=== PATIENT | female | born 1930 | race Caucasian/White ===

== ENCOUNTER 2017-02-25 23:50 | Emergency (ER) | payer MEDICARE, MEDICAID ==
[~2017-02-25 23:50] MED LIST: Azithromycin 250 MG Tab PO ONE
[2017-02-26 00:50] VITALS: BP 149/65
[2017-02-26 01:02] LABS: CHLORIDE,CL 97 mEq/L (98-106); SODIUM,NA 133 mEq/L (136-145)
== END 2017-02-26 01:45 | disposition home or self-care (01) ==
LOC: CC.ED 23:50
DX: J18.9 Pneumonia, unspecified organism (principal); M25.512 Pain in left shoulder; I48.91 Unspecified atrial fibrillation; I10 Essential (primary) hypertension; E03.9 Hypothyroidism, unspecified; Z98.890 Other specified postprocedural states
CPT/HCPCS: 36415; 80048; 81001; 82550; 83615; 84484; 85025; 86140; 96372; 99283; A9270; 71020; 73030-LT

== ENCOUNTER 2017-10-17 20:45 | Emergency (ER) | payer MEDICARE, MEDICAID, SELFPAY ==
[2017-10-17 21:20] LABS: CHLORIDE,CL 99 mEq/L (98-106); SODIUM,NA 136 mEq/L (136-145)
--- NOTE | 2017-10-17 21:22 | EDM.PDOC ---
ED HPI GENERAL MEDICAL PROBLEM - General Chief Complaint: Headache Stated Complaint: pain to L)side of head Time Seen by Provider: 10/17/17 21:21 Source of Information: Reports: Patient - History of Present Illness INITIAL COMMENTS - FREE TEXT/NARRATIVE: Patient is an 87 year old female, with a PMH of hypertension, hyperlipidemia, hypothyroidism, atrial fibrillation, GERD, and osteoarthritis, who presents to the ED with complaint of right and left posterior headache. She reports that the headache started around 1930 and initially started as sharp onset. She does report she is "a little lightheaded." She reports it is now just a dull ache. She denies any chest pain, shortness of breath, nausea, vomiting, diarrhea, abdominal pain, urinary symptoms, difficulty walking, visual changes, or any neurological deficit. She reports that other than the headache she has been feeling well. She is on blood thinners. Denies any injury to her head or neck. Reports that she doesn't get headaches real frequently. She did not take anything at home for the pain prior to ED presentation. NIH 0 at time of assessment. Patient communicating in full complete sentences. Alert and oriented x4. Appears in no acute distress. Onset: Today Onset Date: 10/17/17 Onset Time: 19:30 Duration: Constant Location: Reports: Head Quality: Reports: Ache, Dull Severity: Mild Associated Symptoms: Reports: Headaches. Denies: Confusion, Chest Pain, Cough, cough w sputum, Diaphoresis, Fever/Chills, Loss of Appetite, Malaise, Nausea/ Vomiting, Rash, Seizure, Shortness of Breath, Syncope, Weakness Headache Pain Score (Numeric/FACES): 2 - Related Data Allergies Allergy/AdvReac Type Severity Reaction Status Date / Time tramadol Allergy Stomach Verified 10/17/17 20:55 Upset lisinopril AdvReac Cough Verified 10/17/17 20:55 oxycodone HCl AdvReac Nausea Verified 10/17/17 20:55 [From OxyContin] Home Meds: Home Meds Hydrochlorothiazide 25 mg PO DAILY 10/31/13 [History] Levothyroxine [Synthroid] 100 mcg PO DAILY 10/31/13 [History] Acetaminophen [Tylenol Extra Strength] 1,000 mg PO Q4H PRN 11/09/13 [History] Cholecalciferol (Vitamin D3) [Vitamin D3] 10,000 unit PO DAILY 11/09/13 [History ] Acetaminophen/HYDROcodone [Baggs 325-5 MG] 1 - 2 tab PO Q6H PRN #60 tab [Rx] Cephalexin [Keflex] 500 mg PO TID #20 capsule 11/17/13 [Rx] Apixaban [Eliquis] 2.5 mg PO BID 02/26/17 [History] amLODIPine [Norvasc] 5 mg PO DAILY 02/26/17 [History] Past Medical History Cardiovascular History: Reports: Afib, High Cholesterol, Hypertension Respiratory History: Reports: Bronchitis, Recurrent Gastrointestinal History: Reports: Chronic Constipation, GERD 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 Musculoskeletal History: Reports: Fracture, Osteoarthritis Neurological History: Reports: Vertigo Endocrine/Metabolic History: Reports: Hypothyroidism Hematologic History: Reports: Blood Transfusion(s) - Past Surgical History HEENT Surgical History: Reports: Cataract Surgery Cardiovascular Surgical History: Reports: None Respiratory Surgical History: Reports: None GI Surgical History: Reports: Appendectomy, Colonoscopy, EGD, Hernia, Inguinal, Polypectomy Neurological Surgical History: Reports: None Musculoskeletal Surgical History: Reports: Hip Replacement Social & Family History - Family History Family Medical History: Noncontributory - Tobacco Use Smoking Status *Q: Never Smoker Second Hand Smoke Exposure: No - Alcohol Use Days Per Week of Alcohol Use: 0 - Recreational Drug Use Recreational Drug Use: No ED ROS GENERAL - Review of Systems Review Of Systems: See Below Constitutional: Reports: No Symptoms. Denies: Fever, Chills, Malaise, Weakness , Fatigue HEENT: Reports: Glasses. Denies: Ear Pain, Rhinitis, Sinus Problem, Throat Pain , Vertigo, Vision Change Respiratory: Reports: No Symptoms. Denies: Shortness of Breath, Pleuritic Chest Pain, Cough, Sputum Cardiovascular: Reports: Blood Pressure Problem, Lightheadedness. Denies: Chest Pain, Dyspnea on Exertion, Edema, Syncope Endocrine: Reports: No Symptoms. Denies: Fatigue GI/Abdominal: Reports: No Symptoms. Denies: Abdominal Pain, Anorexia, Diarrhea , Decreased Appetite, Nausea, Vomiting : Reports: No Symptoms. Denies: Dysuria, Frequency, Pain, Urgency Musculoskeletal: Reports: Muscle Stiffness (neck) Skin: Reports: No Symptoms Neurological: Reports: Dizziness, Headache. Denies: Confusion, Numbness, Paresthesia, Pre-Existing Deficit, Seizure, Syncope, Tingling, Tremors, Trouble Speaking, Difficulty Walking, Weakness, Change in Speech, Gait Disturbance Psychiatric: Reports: No Symptoms Hematologic/Lymphatic: Reports: No Symptoms Immunologic: Reports: No Symptoms - Physical Exam Exam: See Below Exam Limited By: No Limitations General Appearance: Alert, WD/WN, No Apparent Distress Eye Exam: Bilateral Eye: EOMI, Normal Fundi, Normal Inspection, PERRL Ears: Normal External Exam, Normal Canal, Hearing Grossly Normal, Normal TMs Nose: Normal Inspection, Normal Mucosa, No Blood Throat/Mouth: Normal Inspection, Normal Lips, Normal Teeth, Normal Gums, Normal Oropharynx, Normal Voice, No Airway Compromise Head Exam: Atraumatic, Normocephalic Neck: Normal Inspection, Supple, Non-Tender, Full Range of Motion Respiratory/Chest: No Respiratory Distress, Lungs Clear, Normal Breath Sounds, No Accessory Muscle Use, Chest Non-Tender Cardiovascular: Normal Peripheral Pulses, No Edema, Irregularly Irregular GI/Abdominal: Normal Bowel Sounds, Soft, Non-Tender, No Organomegaly, No Distention, No Abnormal Bruit, No Mass Neuro Exam (Abbreviated): Alert, Oriented, CN II-XII Intact, Normal Cognition, Normal Gait, Normal Reflexes, No Motor/Sensory Deficits Back Exam: Normal Inspection, Full Range of Motion, NT Extremities: Normal Inspection, Normal Range of Motion, Non-Tender, No Pedal Edema, Normal Capillary Refill Psychiatric: Normal Affect, Normal Mood Skin Exam: Warm, Dry, Intact, Normal Color, No Rash Course - Vital Signs Last Recorded V/S: Last Vital Signs Temp 96.9 F 10/17/17 20:49 Pulse 64 10/17/17 21:35 Resp 18 10/17/17 20:49 BP 169/78 H 10/17/17 22:12 Pulse Ox 97 10/17/17 21:35 - Orders/Labs/Meds Orders: Active Orders 24 hr Category Date Time Status Head wo Cont [CT] Stat Exams 10/17/17 21:04 Taken cloNIDine [Catapres] Med 10/17/17 21:45 Active 0.1 mg PO STAT Medication Orders Clonidine HCl (Catapres) 0.1 mg PO STAT ALCIDES Last Admin: 10/17/17 21:44 Dose: 0.1 mg Labs: Laboratory Tests 10/17/17 10/17/17 10/17/17 Range/Units 21:10 21:10 21:10 WBC 5.8 (5.0-10.0) 10^3/uL RBC 4.35 (4.00-5.50) 10^6/uL Hgb 13.8 (12.0-16.0) g/dL Hct 41.5 (37.0-47.0) % MCV 95.4 H (82.0-94.0) fL MCH 31.7 (27.0-32.0) pg MCHC 33.3 (33.0-38.0) g/dL RDW Coeff of Skinny 12.8 (11.0-15.0) % Plt Count 268 (150-400) 10^3/uL Neut % (Auto) 68.0 (35-85) % Lymph % (Auto) 19.9 (10-55) % [place]affee % (Auto) 10.2 (0-16) % Eos % (Auto) 1.4 (0-5) % Baso % (Auto) 0.5 (0-3) % Neut # (Auto) 3.94 (1.80-7.00) 10^3/uL Lymph # (Auto) 1.15 (1.00-4.80) 10^3/uL [place]fee # (Auto) 0.59 (0.00-0.80) 10^3/uL Eos # (Auto) 0.08 (0.00-0.45) 10^3/uL Baso # (Auto) 0.03 10^3/uL ESR (0-20) mm/hr PT 10.7 (9.7-12.3) SEC INR 0.99 (0.92-1.18) Sodium 136 (136-145) mEq/L Potassium 3.4 L (3.5-5.0) mEq/L Chloride 99 (98-106) mEq/L Carbon Dioxide 31 (21-32) mmol/L BUN 14 (7-18) mg/dL Creatinine 0.8 (0.6-1.0) mg/dL Est Cr Clr Drug Dosing 40.66 mL/min Estimated GFR (MDRD) > 60 (>=60) mL/min Glucose 103 H (75-99) mg/dL Calcium 9.3 (8.4-10.1) mg/dL C-Reactive Protein (0.2-0.8) mg/dL 10/17/17 10/17/17 Range/Units 21:10 21:10 WBC (5.0-10.0) 10^3/uL RBC (4.00-5.50) 10^6/uL Hgb (12.0-16.0) g/dL Hct (37.0-47.0) % MCV (82.0-94.0) fL MCH (27.0-32.0) pg MCHC (33.0-38.0) g/dL RDW Coeff of Skinny (11.0-15.0) % Plt Count (150-400) 10^3/uL Neut % (Auto) (35-85) % Lymph % (Auto) (10-55) % Chaffee % (Auto) (0-16) % Eos % (Auto) (0-5) % Baso % (Auto) (0-3) % Neut # (Auto) (1.80-7.00) 10^3/uL Lymph # (Auto) (1.00-4.80) 10^3/uL [place]fee # (Auto) (0.00-0.80) 10^3/uL Eos # (Auto) (0.00-0.45) 10^3/uL Baso # (Auto) 10^3/uL ESR 29 H (0-20) mm/hr PT (9.7-12.3) SEC INR (0.92-1.18) Sodium (136-145) mEq/L Potassium (3.5-5.0) mEq/L Chloride (98-106) mEq/L Carbon Dioxide (21-32) mmol/L BUN (7-18) mg/dL Creatinine (0.6-1.0) mg/dL Est Cr Clr Drug Dosing mL/min Estimated GFR (MDRD) (>=60) mL/min Glucose (75-99) mg/dL Calcium (8.4-10.1) mg/dL C-Reactive Protein 0.7 (0.2-0.8) mg/dL Meds: Medications Generic Name Dose Route Start Last Admin Trade Name Freq PRN Reason Stop Dose Admin Clonidine HCl 0.1 mg 10/17/17 21:45 10/17/17 21:44 Catapres PO 0.1 mg STAT ALCIDES Administration Discontinued Medications Generic Name Dose Route Start Last Admin Trade Name Jimmy PRN Reason Stop Dose Admin Acetaminophen 650 mg 10/17/17 21:43 10/17/17 21:45 Tylenol PO 10/17/17 21:44 650 mg NOW ONE Administration - Radiology Interpretation Free Text/Narrative:: CT negative for evidence of acute intracranial hemorrhage or large vascular distribution infarct. CT Results Date: 10/17/17 CT Results Time: 21:45 - Re-Assessments/Exams Free Text/Narrative Re-Assessment/Exam: Labs all stable. Discussed with patient and spouse. Patient given clonidine for elevated BP and Tylenol for headache. CT of head negative for any acute findings. Results discussed with patient and spouse. BP decreased with clonidine. Departure - Departure Time of Disposition: 21:59 Disposition: Home, Self-Care 01 Clinical Impression: Tension-type headache Hypertension Qualifiers: Hypertension type: essential hypertension Qualified Code(s): I10 - Essential ( primary) hypertension - Discharge Information Instructions: Tension Headache, [id number], Managing Your High Blood Pressure , Hypertension Referrals: Miguelangel Camilo MD [Primary Care Provider] - Forms: ED Department Discharge Additional Instructions: 650 mg Tylenol Q 4-6 hours as needed for headache Push fluids Apply heat to neck/posterior head for comfort Recommend massaging affected area Return to ED for any worsening of condition or any other emergent needs Follow up with PCP - My Orders Last 24 Hours: My Active Orders 10/17/17 21:04 Head wo Cont [CT] Stat 10/17/17 21:45 cloNIDine [Catapres] 0.1 mg PO STAT - Assessment/Plan Last 24 Hours: My Active Orders 10/17/17 21:04 Head wo Cont [CT] Stat 10/17/17 21:45 cloNIDine [Catapres] 0.1 mg PO STAT
[2017-10-17] MEDS ORDERED: Acetaminophen 325 MG Tab PO ONE (21:43)
[2017-10-17] MEDS ORDERED: cloNIDine 0.1 MG Tab PO SCH (21:45)
[2017-10-17 22:21] VITALS: BP 147/72
== END 2017-10-17 22:25 | disposition home or self-care (01) ==
LOC: CC.ED 20:45
DX: G44.209 Tension-type headache, unspecified, not intractable (principal); I10 Essential (primary) hypertension; E78.00 Pure hypercholesterolemia, unspecified; E03.9 Hypothyroidism, unspecified; K21.9 Gastro-esophageal reflux disease without esophagitis; M19.90 Unspecified osteoarthritis, unspecified site; Z88.5 Allergy status to narcotic agent; Z88.8 Allergy status to other drugs, medicaments and biological substances; Z79.899 Other long term (current) drug therapy; Z79.01 Long term (current) use of anticoagulants; I48.91 Unspecified atrial fibrillation
CPT/HCPCS: 36415; 70450; 80048; 85025; 85610; 85651; 86140; 99284; A9270

== ENCOUNTER 2018-11-05 16:42 | Emergency (ER) | payer MEDICARE, MEDICAID ==
[2018-11-05] MEDS ORDERED: Acetaminophen/HYDROcodone 325-5 MG Tab PO ONE (16:43)
[2018-11-05] MEDS ORDERED: fentaNYL 100 MCG/2 ML SDV IM ONE (16:49)
[2018-11-05 17:04] VITALS: BP 166/90
--- NOTE | 2018-11-05 17:19 | EDM.PDOC ---
ED HPI GENERAL MEDICAL PROBLEM - General Chief Complaint: Upper Extremity Injury/Pain Stated Complaint: FELL/LT ARM Time Seen by Provider: 11/05/18 16:59 Source of Information: Reports: Patient History Limitations: Reports: No Limitations - History of Present Illness INITIAL COMMENTS - FREE TEXT/NARRATIVE: Patient presents with left wrist pain. Was out on her deck shaking out a rug. Was wearing slippers and caught her foot as she was entering back to her house. She fell forward, arm outstretched to catch her fall. Has mild discomfort to left knee. No head trauma. No loss of consciousness. Patient states did land on her right side. assisted her to get up from the fall. GCS 15 Onset: Today, Sudden Duration: Minutes:, Constant Location: Reports: Upper Extremity, Left Quality: Reports: Throbbing Severity: Severe Improves with: Reports: None Worsens with: Reports: Movement Context: Reports: Trauma Associated Symptoms: Denies: Confusion, Chest Pain, Headaches, Loss of Appetite , Nausea/Vomiting, Shortness of Breath, Syncope Left Arm Pain Score (Numeric/FACES): 10 - Related Data Allergies Allergy/AdvReac Type Severity Reaction Status Date / Time tramadol Allergy Stomach Verified 10/17/17 20:55 Upset lisinopril AdvReac Cough Verified 10/17/17 20:55 oxycodone HCl AdvReac Nausea Verified 10/17/17 20:55 [From OxyContin] Home Meds: Home Meds Levothyroxine [Synthroid] 80 mcg PO DAILY 10/31/13 [History] hydroCHLOROthiazide [Hydrochlorothiazide] 25 mg PO DAILY 10/31/13 [History] Acetaminophen [Tylenol Extra Strength] 1,000 mg PO Q4H PRN 11/09/13 [History] Cholecalciferol (Vitamin D3) [Vitamin D3] 5,000 unit PO DAILY 11/09/13 [History] Apixaban [Eliquis] 2.5 mg PO BID 02/26/17 [History] amLODIPine [Norvasc] 5 mg PO DAILY 02/26/17 [History] Past Medical History Cardiovascular History: Reports: Afib, High Cholesterol, Hypertension Respiratory History: Reports: Bronchitis, Recurrent Gastrointestinal History: Reports: Chronic Constipation, GERD 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 Musculoskeletal History: Reports: Fracture, Osteoarthritis Neurological History: Reports: Vertigo Endocrine/Metabolic History: Reports: Hypothyroidism Hematologic History: Reports: Blood Transfusion(s) Dermatologic History: Reports: Other (See Below) Other Dermatologic History: rosacea - Past Surgical History HEENT Surgical History: Reports: Cataract Surgery Cardiovascular Surgical History: Reports: None Respiratory Surgical History: Reports: None GI Surgical History: Reports: Appendectomy, Colonoscopy, EGD, Hernia, Inguinal, Polypectomy Neurological Surgical History: Reports: None Musculoskeletal Surgical History: Reports: Hip Replacement Social & Family History - Family History Family Medical History: Noncontributory - Tobacco Use Smoking Status *Q: Never Smoker Second Hand Smoke Exposure: No - Caffeine Use Caffeine Use: Reports: None - Recreational Drug Use Recreational Drug Use: No Review of Systems - Review of Systems Review Of Systems: See Below Constitutional: Denies: Weakness Eyes: Reports: No Symptoms Ears: Reports: No Symptoms Nose: Reports: No Symptoms Mouth/Throat: Reports: No Symptoms Respiratory: Reports: No Symptoms Cardiovascular: Reports: No Symptoms GI/Abdominal: Reports: No Symptoms Genitourinary: Reports: No Symptoms Musculoskeletal: Reports: Arm Pain, Joint Pain (knee pain) Skin: Reports: Bruising Neurological: Denies: Confusion, Dizziness, Headache, Syncope, Weakness ED EXAM, GENERAL - Physical Exam Exam: See Below Free Text/Narrative:: Primary Survey GCS 15. No head trauma. Alert and oriented Lungs are clear, good air exchange Cardiac reg [id number] No pelvic pain with palpation Exam Limited By: No Limitations General Appearance: Alert, WD/WN, Mild Distress Eye Exam: Bilateral Eye: EOMI Ears: Normal External Exam, Normal TMs Nose: Normal Inspection, Normal Mucosa, No Blood Throat/Mouth: Normal Inspection, Normal Oropharynx Head: Atraumatic, Normocephalic Neck: Normal Inspection, Supple, Non-Tender Respiratory/Chest: No Respiratory Distress, Lungs Clear, Normal Breath Sounds Cardiovascular: Irregularly Irregular GI/Abdominal: Normal Bowel Sounds, No Distention Extremities: Arm Pain (left wrist has an obvious deformity), Limited Range of Motion (left wrist), Other (small bruise and abrasion noted to left knee) Neurological: Alert, Oriented Course - Vital Signs Last Recorded V/S: Last Vital Signs Temp 97.7 F 11/05/18 17:01 Pulse 83 11/05/18 17:01 Resp 18 11/05/18 17:01 BP 166/90 H 11/05/18 17:01 Pulse Ox 98 11/05/18 17:01 - Orders/Labs/Meds Orders: Active Orders 24 hr Category Date Time Status Wrist 2V Lt [CR] Stat Exams 11/05/18 16:48 Taken Meds: Medications Discontinued Medications Generic Name Dose Route Start Last Admin Trade Name Jimmy PRN Reason Stop Dose Admin Hydrocodone Bitart/Acetaminophen 2 packet 11/05/18 17:25 11/05/18 17:29 Take Home: Acetaminophen/Hydrocod, 2 Tab Pack PO 11/05/18 17:26 2 packet ONETIME ONE Administration Fentanyl 25 mcg 11/05/18 16:49 11/05/18 16:54 Sublimaze IM 11/05/18 16:50 25 mcg ONETIME ONE Administration - Re-Assessments/Exams Free Text/Narrative Re-Assessment/Exam: 11/05/18 1700 GCS remains 15. Left wrist xrays reviewed. Does have fractures noted of distal radius and ulna. Mildly displaced. 11/05/18 1715- One step wrist splint applied to left wrist and arm placed in sling. Elevated on pillow. Resumed ice pack. Fentanyl was given earlier and patient states has helped to relieve the pain somewhat. Patient aware that we will contact ortho tomorrow for review of the xrays and if surgical intervention warranted. Departure - Departure Time of Disposition: 17:18 Disposition: Home, Self-Care 01 Condition: Fair Clinical Impression: Closed fracture of radius and ulna Qualifiers: Encounter type: initial encounter Laterality: left Qualified Code(s): S52.92XA - Unspecified fracture of left forearm, initial encounter for closed fracture - Discharge Information *PRESCRIPTION DRUG MONITORING PROGRAM REVIEWED*: No *COPY OF PRESCRIPTION DRUG MONITORING REPORT IN PATIENT LENORE: No Instructions: Forearm Fracture, [id number] Referrals: Miguelangel Camilo MD [Primary Care Provider] - Forms: ED Department Discharge Additional Instructions: 1. Elevate arm frequently tonight on pillow 2. Ice every 2 hours tonight and tomorrow 3. Keep splint on, wear sling 4. Ehrenberg 1-2 tabs for pain every 6 hours as needed for pain 5. We will call you tomorrow with orthopedic recommendations - My Orders Last 24 Hours: My Active Orders 11/05/18 16:48 Wrist 2V Lt [CR] Stat - Assessment/Plan Last 24 Hours: My Active Orders 11/05/18 16:48 Wrist 2V Lt [CR] Stat
[2018-11-05] MEDS ORDERED: Take Home: Acetaminophen/HYDROcodone 325-5 MG, 2 Tab Pack PO ONE (17:25)
== END 2018-11-05 17:47 | disposition home or self-care (01) ==
LOC: CC.ED 16:42
DX: S52.502A Unspecified fracture of the lower end of left radius, initial encounter for closed fracture (principal); S52.602A Unspecified fracture of lower end of left ulna, initial encounter for closed fracture; I48.91 Unspecified atrial fibrillation; E78.00 Pure hypercholesterolemia, unspecified; I10 Essential (primary) hypertension; E03.9 Hypothyroidism, unspecified; Z79.899 Other long term (current) drug therapy; Z88.5 Allergy status to narcotic agent; Z88.8 Allergy status to other drugs, medicaments and biological substances; W18.39XA Other fall on same level, initial encounter
CPT/HCPCS: 73100-LT; 96372; 99283; A9270-GY; J3010

== ENCOUNTER → 2020-05-26 | Day surgery (SDC) | payer MEDICARE, MEDICAID ==
[~2020-05-26] MED LIST changes: -Azithromycin 250 MG Tab PO ONE; +Ketamine 200 MG/20 ML MDV IV ONE; +Propofol 200 MG/20 ML SDV IV ONE; +fentaNYL 100 MCG/2 ML SDV IV ONE
[2020-05-26] MEDS: Lactated Ringers 1,000 ML IV SCH (08:53)
[2020-05-26 10:45] VITALS: BP 143/55; PULSE 49
--- NOTE | 2020-05-29 09:47 | OR ---
DATE OF OPERATION: 05/26/2020 PREOPERATIVE DIAGNOSIS: 1. PERSISTENT EPIGASTRIC PAIN. 2. FAMILY HISTORY OF COLON CANCER. POSTOPERATIVE DIAGNOSIS: 1. PERSISTENT EPIGASTRIC PAIN. 2. FAMILY HISTORY OF COLON CANCER. SURGEON: Miguelangel Camilo MD PROCEDURE: 1. DIAGNOSTIC ESOPHAGOGASTRODUODENOSCOPY WITH BIOPSIES X2, SANJAY. 2. FULL-LENGTH COLONOSCOPY WITH FORCEPS POLYPECTOMY X1. ANESTHESIA: MAC. COMPLICATIONS: None. SPECIMEN: 1. Antral biopsy x2. 2. Antral SANJAY. 3. Cecal polyp approximately 0.5 cm. FINDINGS: 1. Full-length diagnostic EGD. 2. Minimal antral gastritis. 3. Full-length colonoscopy. 4. Mild sigmoid diverticulosis. 5. Sessile polyp, cecum. RECOMMENDATIONS: Medical followup for patient's gastritis. The patient could consider followup colonoscopy again in 5 years should she desire, but at her age, appropriate if she declines. INDICATIONS: Mrs. Melgar has been having some ongoing and persistent epigastric and right upper quadrant pain. She was sent for diagnostic EGD in that regard. She has a family history of colon cancer and was told apparently to have a followup colonoscopy by her last provider. She was sent for both. DESCRIPTION OF PROCEDURE: The patient was prepped and draped and placed in the left lateral decubitus position. A lubricated Olympus gastroscope was inserted and then advanced to the cricopharyngeus area and easily intubated in the esophagus. The esophageal lining was benign in its entire course. The Z-line was crisp at 40 cm. There was no spontaneous reflux visualized. No distal esophagitis, stricturing, ulceration, or Ch's changes. Scope was advanced into the stomach, through the pylorus, and into the second portion of the duodenum. This and duodenal bulb were completely benign. The scope was brought back into the stomach and retroflexed. The upper fundus and cardia were completely unremarkable. Upon straightening, the rest of the fundus was benign. There were a few very mild areas of gastritis in the antrum. These did appear active and acute. We elected to biopsy 2 of them along with getting a CLOtest. Air was then suctioned from the stomach and the scope was removed without complication. A lubricated Olympus colonoscope was then inserted and ultimately and safely advanced to the cecum. The patient was a bit tortuous. We were able to directly visualize the ileocecal valve and appendiceal orifice. The bowel prep was fine. Upon withdrawal, in the immediate kimberli-cecal area in the back edge of the cecal pouch, the patient had a small flat sessile polyp approximately 4 to 5 mm, removed it with two forceps biopsies in its entirety. The rest of the ascending and transverse colons were benign. The patient did have scattered diverticula, albeit very minimal and mild throughout the colon. No inflammatory changes were seen. The rest of the colon showed no signs of polyps, mass, ulceration, or bleeding sites. No vascular abnormalities or signs of colitis. The rectal vault was benign. Retroflexion of the scope in the rectum showed no anal lesions. Air was suctioned. Scope was removed without complication. KALYANI/TOLU /[id number]
== END ==
LOC: CC.SDS 08:37
PROVIDERS: ATTEND Family Medicine
DX: Z12.11 Encounter for screening for malignant neoplasm of colon (principal); D12.0 Benign neoplasm of cecum; K57.30 Diverticulosis of large intestine without perforation or abscess without bleeding; K29.70 Gastritis, unspecified, without bleeding; Q43.8 Other specified congenital malformations of intestine; K21.9 Gastro-esophageal reflux disease without esophagitis; I10 Essential (primary) hypertension; E78.00 Pure hypercholesterolemia, unspecified; E03.9 Hypothyroidism, unspecified; I48.0 Paroxysmal atrial fibrillation; Z86.010 Personal history of colon polyps; Z88.5 Allergy status to narcotic agent; Z88.6 Allergy status to analgesic agent; Z88.8 Allergy status to other drugs, medicaments and biological substances; Z79.899 Other long term (current) drug therapy; Z79.01 Long term (current) use of anticoagulants; Z80.0 Family history of malignant neoplasm of digestive organs
CPT/HCPCS: 00813; 87081; 88305; J2704; J3010; J7120